=== PATIENT | male | born 1975 | race Two or more races ===

== ENCOUNTER → 2017-12-31 | Emergency (ER) | payer OTHER ==
[~2017-12-31] VITALS: Ht 188 cm; Wt 96.2 kg
== END | disposition home or self-care (01) ==
LOC: ER 09:35
DX: R53.81 Other malaise (principal); F14.10 Cocaine abuse, uncomplicated; F10.10 Alcohol abuse, uncomplicated

== ENCOUNTER → 2020-07-30 | Emergency (ER) | payer OTHER ==
[~2020-07-30] VITALS: Ht 188 cm; Wt 91.2 kg
[~2020-07-30] MED LIST: ALLEGRA ALLERG180 MG PO; LEVOFLOXACIN750 MG PO; MUPIROCIN1 G1 TP; NABUMETONE750 MG PO; SULFAMETHOXAZO473 ML
== END | disposition home or self-care (01) ==
LOC: ER 18:50
DX: L03.116 Cellulitis of left lower limb (principal)

== ENCOUNTER 2021-03-29 09:17 | Emergency (ER) | payer OTHER ==
[~2021-03-29] VITALS: Ht 188 cm; Wt 88.5 kg
== END 2021-03-29 10:48 | disposition home or self-care (01) ==
LOC: ER 09:17
DX: J06.9 Acute upper respiratory infection, unspecified (principal); R05 Cough; Z03.818 Encounter for observation for suspected exposure to other biological agents ruled out

== ENCOUNTER 2021-09-30 13:39 | Emergency (ER) | payer OTHER ==
[~2021-09-30] VITALS: Ht 188 cm; Wt 93.0 kg
== END 2021-09-30 18:43 | disposition home or self-care (01) ==
LOC: ER 13:39
DX: F41.9 Anxiety disorder, unspecified (principal); I10 Essential (primary) hypertension; R51.9 Headache, unspecified; F10.980 Alcohol use, unspecified with alcohol-induced anxiety disorder; F14.980 Cocaine use, unspecified with cocaine-induced anxiety disorder

== ENCOUNTER 2024-05-18 01:12 | Emergency (ER) | payer OTHER ==
[~2024-05-18] VITALS: Ht 182.9 cm; Wt 90.7 kg
[~2024-05-18 01:12] MED LIST changes: +DOLOGESIC-DF 51 EACH PO; +PEPCID40 MG PO; +ZOFRAN8 MG PO
[2024-05-18] MEDS ORDERED: RINGERS SOLUTION,LACTATED 1,000 ML IV STA (01:50)
[2024-05-18] MEDS ORDERED: LORazepam 2 MG/ML VIAL IM STA (01:51)
[2024-05-18] MEDS ORDERED: HALOPERIDOL LACTATE 5 MG/ML AMPUL IM STA (01:51)
[2024-05-18] MEDS ORDERED: DIPHENHYDRAMINE HCL 50 MG/ML VIAL 1ML IM STA (01:52)
[2024-05-18 02:16] LABS: HEMATOCRIT 42.7 % (39.0-48.0); HEMOGLOBIN 14.9 g/dL (13-16.00); MEAN CELL VOLUME 92.5 fL (80.0-100.00); MEAN CORPUSCULAR HEMOGLOBIN 32.2 pg (27.00-32.0); MEAN CORPUSCULAR HGB CONC 34.8 g/dl (32.0-36.0); PLATELET COUNT 278 K/uL (150-450); RED BLOOD COUNT 4.62 M/uL (4.00-6.00); RED CELL DISTRIBUTION WIDTH 12.5 % (11.5-14.5)
[2024-05-18 02:25] LABS: INR 1.03; PARTIAL THROMBOPLASTIN TIME 29.4 SECONDS (22.0-34.0); PROTHROMBIN TIME 11.2 SECONDS (9.0-11.5)
[2024-05-18 02:29] LABS: ALBUMIN 4.2 gm/dL (3.4-5.0); BILIRUBIN TOTAL 0.3 mg/dL (0.3-1.2); CALCIUM 8.6 mg/dL (8.5-10.1); CREATININE SERUM 0.87 mg/dL (0.70-1.30); GFR 94.06; GLOBULINA 3.7 G/DL (2.4-3.5); POTASSIUM 3.64 mEq/L (3.5-5.1); TOTAL PROTEIN 7.9 gm/dL (6.4-8.2)
== END 2024-05-18 09:55 | disposition home or self-care (01) ==
LOC: ER 01:13
DX: F14.10 Cocaine abuse, uncomplicated (principal); F19.10 Other psychoactive substance abuse, uncomplicated; R07.89 Other chest pain

== ENCOUNTER 2024-07-18 06:41 | Emergency (ER) | payer OTHER ==
[~2024-07-18] VITALS: Ht 188 cm; Wt 97.5 kg
[2024-07-18 07:15] VITALS: BP 127/88
[2024-07-18] MEDS ORDERED: METHYLPREDNISOLONE SOD SUCC 125 MG VIAL IM STA (08:23)
[2024-07-18] MEDS ORDERED: GUAIFENESIN 200 MG/10 ML BLIST.PACK PO STA (08:24)
[2024-07-18] MEDS ORDERED: CEFTRIAXONE SODIUM 1,000 MG VIAL IM STA (08:24)
[2024-07-18 10:56] VITALS: O2SAT 100
== END 2024-07-18 10:56 | disposition home or self-care (01) ==
LOC: ER 06:43
DX: R05.8 Other specified cough (principal)

== ENCOUNTER 2025-01-07 02:49 | Emergency (ER) | payer OTHER ==
[~2025-01-07] VITALS: Ht 188 cm; Wt 95.3 kg
[2025-01-07] MEDS ORDERED: hydrOXYzine PAMOATE 50 MG CAPSULE PO STA (03:40)
[2025-01-07 03:57] LABS: BASO % 0.8 % (0.1-1.2); EOS # 0.05 (0.04-0.54); EOS % 0.6 % (0.7-7.0); HEMATOCRIT 42.4 % (40.1-51.0); HEMOGLOBIN 14.5 g/dL (13.7-17.5); LYMPH # 3.11 (1.18-3.74); LYMPH % 39.8 % (19.3-53.1); MEAN CORPUSCULAR HEMOGLOBIN 30.7 pg (25.6-32.2); MONO # 0.83 (0.24-0.82); MONO % 10.6 % (4.7-12.5); NEUT # 3.75 (1.56-6.13); NEUT % 47.9 % (34.0-71.1); PLATELET COUNT 247 K/uL (163-369); RED BLOOD COUNT 4.73 M/uL (4.63-6.08); RED CELL DISTRIBUTION WIDTH 11.8 % (11.6-14.4)
[2025-01-07 05:31] LABS: ABG PH 7.446 (7.35-7.45); ABG pCO2 40.8 mmHg (35-45); BASE EXCESS 3.1 mmol/l; BICARBONATE 27.4 mmol/l (23-25); SaO2 96.9 %; Tco2 28.7 mmol/l; allen test SATISFACTORY; mode ROOM AIR; o2 21 %; puncture site RADIAL LEFT
[2025-01-07 05:32] LABS: ABG PO2 84.6 mmHg (80-100)
[2025-01-07] MEDS ORDERED: HYDROXYZINE PAM50 MG PO (05:44)
== END 2025-01-07 05:51 ==
LOC: ER 02:49
PROVIDERS: General Practice
DX: F41.9 Anxiety disorder, unspecified (principal)

== ENCOUNTER 2025-01-28 08:48 | Emergency (ER) | payer OTHER ==
[~2025-01-28] VITALS: Ht 188 cm; Wt 99.8 kg
[~2025-01-28 08:48] MED LIST changes: +HYDROXYZINE PAM50 MG PO
[2025-01-28] MEDS ORDERED: ROSUVASTATIN CA20 MG PO (09:05)
[2025-01-28] MEDS ORDERED: FAMOtidine 10 MG/ML (4ML VIAL) IV ONE (09:45)
[2025-01-28] MEDS ORDERED: hydrOXYzine PAMOATE 50 MG CAPSULE PO ONE ×2 (09:45→09:47)
[2025-01-28] MEDS ORDERED: FAMOTIDINE/PF 20 MG/2 ML VIAL ONE (09:47)
[2025-01-28 10:37] LABS: BASO % 0.8 % (0.1-1.2); EOS # 0.08 (0.04-0.54); EOS % 1.2 % (0.7-7.0); HEMATOCRIT 39.7 % (40.1-51.0); LYMPH # 2.47 (1.18-3.74); LYMPH % 37.7 % (19.3-53.1); MEAN CORPUSCULAR HEMOGLOBIN 31.3 pg (25.6-32.2); MONO # 0.63 (0.24-0.82); MONO % 9.6 % (4.7-12.5); NEUT % 50.4 % (34.0-71.1); PLATELET COUNT 258 K/uL (163-369); RED BLOOD COUNT 4.48 M/uL (4.63-6.08); RED CELL DISTRIBUTION WIDTH 11.2 % (11.6-14.4)
[2025-01-28 10:48] LABS: PH,URINE 8.5 (5.0-8.0); URINE APPEARANCE Clear; URINE BILIRRUBIN Negative (NEGATIVE); URINE BLOOD Negative; URINE COLOR Yellow; URINE GLUCOSE Negative (NEGATIVE); URINE KETONE Negative (NEGATIVE); URINE LEUKOCYTE Negative; URINE NITRATE Negative; URINE PROTEIN Negative (NEGATIVE); URINE UROBILINOGEN 0.2 E.U./dl
[2025-01-28 10:49] LABS: URINE WBC 6.1 uL (0.0-23.2)
[2025-01-28 11:16] LABS: URINE BACTERIA 3.6 uL (0.0-1933); URINE EPITHELIAL CELLS 0.1 uL (0.0-38.8); URINE RBC 0.1 uL (0.0-20.8)
[2025-01-28 11:49] LABS: ALBUMIN 3.8 gm/dL (3.4-5.0); BILIRUBIN TOTAL 0.44 mg/dL (0.3-1.2); CALCIUM 8.7 mg/dL (8.5-10.1); CREATININE SERUM 0.86 mg/dL (0.70-1.30); GFR 94.91; GLOBULINA 3.5 G/DL (2.4-3.5); POTASSIUM 3.76 mEq/L (3.5-5.1); TOTAL PROTEIN 7.3 gm/dL (6.4-8.2)
[2025-01-28] MEDS ORDERED: HYDROXYZINE PAM50 MG PO (13:13)
== END 2025-01-28 13:24 | disposition home or self-care (01) ==
LOC: ER 08:54
PROVIDERS: Preventive Medicine Public Health & General Preventive Medicine
DX: K21.9 Gastro-esophageal reflux disease without esophagitis (principal); F41.9 Anxiety disorder, unspecified

== ENCOUNTER 2025-06-08 03:35 | Emergency (ER) | payer OTHER ==
[~2025-06-08] VITALS: Ht 188 cm; Wt 99.8 kg
[~2025-06-08 03:35] MED LIST changes: +ROSUVASTATIN CA20 MG PO
[2025-06-08] MEDS ORDERED: LORazepam 2 MG/ML VIAL IM STA (05:16)
[2025-06-08] MEDS ORDERED: LORazepam 2 MG/ML VIAL ONE (05:20)
[2025-06-08 05:59] LABS: BASO % 0.6 % (0.1-1.2); EOS # 0.01 (0.04-0.54); EOS % 0.1 % (0.7-7.0); LYMPH # 3.70 (1.18-3.74); LYMPH % 38.5 % (19.3-53.1); MEAN PLATELET VOLUME 9.30 fl (9.4-12.4); MONO # 0.83 (0.24-0.82); MONO % 8.6 % (4.7-12.5); NEUT # 4.97 (1.56-6.13); NEUT % 51.9 % (34.0-71.1); RED CELL DISTRIBUTION WIDTH 11.7 % (11.6-14.4)
[2025-06-08 06:08] LABS: ALT/SGPT 51.0 U/L (12-78); AST/SGOT 70.0 U/L (15-37); BILIRUBIN TOTAL 0.26 mg/dL (0.3-1.2); BUN CREA RATIO 13.0 (7.0-25.0); CREATININE SERUM 0.88 mg/dL (0.70-1.30); GFR 92.43; GLOBULINA 4.0 G/DL (2.4-3.5); GLUCOSE FASTING 104.0 mg/dL (65-100); OSMOLALITY SERUM 279.0 MOSM/KG (275-295)
[2025-06-08 07:22] LABS: URINE APPEARANCE Clear; URINE BILIRRUBIN Negative (NEGATIVE); URINE BLOOD Negative; URINE COLOR Yellow; URINE GLUCOSE Negative (NEGATIVE); URINE KETONE Negative (NEGATIVE); URINE LEUKOCYTE Negative; URINE NITRATE Negative; URINE PROTEIN Negative (NEGATIVE); URINE UROBILINOGEN 0.2 E.U./dl
[2025-06-08 07:23] LABS: URINE BACTERIA 5.9 uL (0.0-1933)
[2025-06-08 07:58] LABS: URINE CAST 0.00 uL (0.0-1.40); URINE EPITHELIAL CELLS 0.4 uL (0.0-38.8); URINE RBC 0.1 uL (0.0-20.8); URINE WBC 0.7 uL (0.0-23.2)
== END 2025-06-08 08:20 | disposition home or self-care (01) ==
LOC: ER 03:35
PROVIDERS: General Practice
DX: F14.10 Cocaine abuse, uncomplicated (principal)

== ENCOUNTER → 2025-08-05 | Emergency (ER) | payer OTHER | END | disposition left against medical advice (07) | LOC: ER 17:53 | DX: Z53.21 Procedure and treatment not carried out due to patient leaving prior to being seen by health care provider (principal) ==